=== PATIENT | male | born 1950 | race Caucasian/White ===

== ENCOUNTER 2016-05-15 18:02 | Inpatient (IN) | payer MEDICARE ==
[~2016-05-15 18:02] MED LIST: ASPIRIN CHEWABL81 MG PO; COREG 3.125M3.125 MG PO; GLUCOTROL5 MG PO; K-DUR20 MEQ PO; LASIX40 MG PO; LYRICA 50MG CAP50 MG PO; PROSCAR5 MG PO
[2016-05-15 18:41] LABS: BASOPHIL 1.1 % (0-2); EOSINOPHIL 2.1 % (0-7); HCT 48.5 % (42.0-52.0); HGB 17.5 g/dl (13.2-18.0); LYMPHOCYTE 27.3 % (15-48); MCH 27.5 pg (25.0-31.0); MCHC 36.1 g/dL (32.0-36.0); MCV 76.1 fL (78.0-100.0); MPV 12.4 fL (6.0-9.5); NEUTROPHIL 60.5 % (41-80); PLT 146 K/uL (150-400); RBC 6.37 M/uL (4.70-6.00); RDW 13.7 % (11.5-14.0); WBC 7.2 K/uL (4.0-10.5)
[2016-05-15 18:53] LABS: ALBUMIN 4.3 g/dL (3.4-4.8); BILIRUBIN - TOTAL 0.5 mg/dL (0.1-1.0); CREATININE 1.8 mg/dL (0.7-1.2); GLOBULIN (CALCULATION) 3.1 g/dL (2.2-4.2); POTASSIUM 2.8 mmol/L (3.5-5.1); TOTAL PROTEIN 7.4 g/dL (6.4-8.3)
[2016-05-15 19:54] LABS: BILIRUBIN NEGATIVE (NEGATIVE); BLOOD NEGATIVE Ery/uL (NEGATIVE); CLARITY CLEAR (CLEAR); COLOR YELLOW (YELLOW); GLUCOSE (U) 3+ mg/dL (NORMAL); KETONE (U) NEGATIVE (NEGATIVE); LEUKOCYTES NEGATIVE Leu/uL (NEGATIVE); NITRITE NEGATIVE (NEGATIVE); PROTEIN NEGATIVE (NEGATIVE); SPECIFIC GRAVITY <=1.005 (1.001-1.030); UROBILINOGEN 0.2 mg/dL (0.2-1.0); pH 6.5 (5.0-9.0)
[2016-05-16 03:40] LABS: BASOPHIL 1.5 % (0-2); EOSINOPHIL 3.1 % (0-7); HCT 44.8 % (42.0-52.0); HGB 15.9 g/dl (13.2-18.0); MCH 27.6 pg (25.0-31.0); MCHC 35.5 g/dL (32.0-36.0); MCV 77.6 fL (78.0-100.0); MONOCYTE 8.5 % (0-12); NEUTROPHIL 56.9 % (41-80); PLT 114 K/uL (150-400); RBC 5.77 M/uL (4.70-6.00); RDW 13.8 % (11.5-14.0); WBC 6.1 K/uL (4.0-10.5)
[2016-05-16 04:05] LABS: CREATININE 1.5 mg/dL (0.7-1.2); POTASSIUM 2.8 mmol/L (3.5-5.1)
[2016-05-16 17:35] LABS: CREATININE 1.4 mg/dL (0.7-1.2); POTASSIUM 3.9 mmol/L (3.5-5.1)
[2016-05-17 04:05] LABS: HCT 44.6 % (42.0-52.0); HGB 15.5 g/dl (13.2-18.0); MCH 27.6 pg (25.0-31.0); MCHC 34.8 g/dL (32.0-36.0); MCV 79.5 fL (78.0-100.0); MPV 12.2 fL (6.0-9.5); RBC 5.61 M/uL (4.70-6.00); RDW 14.1 % (11.5-14.0); WBC 5.9 K/uL (4.0-10.5)
[2016-05-17 04:24] LABS: CREATININE 1.2 mg/dL (0.7-1.2); POTASSIUM 3.1 mmol/L (3.5-5.1)
== END 2016-05-17 15:15 | disposition home or self-care (01) | DRG 638 ==
LOC: FER 18:02 → FTCU 23:59
PROVIDERS: Emergency Medicine; Internal Medicine; ADMIT Internal Medicine
DX: E11.65 Type 2 diabetes mellitus with hyperglycemia (principal); N17.9 Acute kidney failure, unspecified; I42.8 Other cardiomyopathies; I50.22 Chronic systolic (congestive) heart failure; E87.1 Hypo-osmolality and hyponatremia; E11.22 Type 2 diabetes mellitus with diabetic chronic kidney disease; I12.9 Hypertensive chronic kidney disease with stage 1 through stage 4 chronic kidney disease, or unspecified chronic kidney disease; N18.9 Chronic kidney disease, unspecified; E87.6 Hypokalemia; E86.0 Dehydration; G47.33 Obstructive sleep apnea (adult) (pediatric); J44.9 Chronic obstructive pulmonary disease, unspecified; Z88.2 Allergy status to sulfonamides; Z88.5 Allergy status to narcotic agent; N18.3 Chronic kidney disease, stage 3 (moderate); R09.02 Hypoxemia
CPT/HCPCS: 36415; 36600; 71020; 80048; 80053; 81003; 82009; 82550; 82803; 82962; 84484; 85025; 93005; 97116; 97162; 97530-GP; J1644; J1815; J3480

== ENCOUNTER 2020-03-28 14:51 | Emergency (ER) | payer MEDICARE, OTHER ==
[~2020-03-28 14:51] MED LIST changes: +BASAGLAR K100 UNIT/1 SC; +BENTYL10 MG PO; +BUMETANIDE1 MG PO; +BUMETANIDE2 MG PO; +BUMEX1 MG PO; +BUPROPION XL150 MG PO; +BUPROPION XL300 MG PO; +CETIRIZINE HCL10 MG PO; +COREG 6.25MG6.25 MG PO; +FLOMAX0.4 MG PO; +HUMULIN R100 UNIT/1 SC; +HUMULIN R100 UNIT/1 SQ; +HYDROCODON-ACE1 EAC4 PO; +LEVAQUIN750 MG PO; +MACROBID100 MG PO; +MAG-OXIDE 400M400 MG PO; +NORCO 5-325 TA1 EACH PO; +PERCOCET 5-3251 EACH PO; +POTASSIUM CHLO20 ME2 PO; +PRAVACHOL40 MG PO; +PRAVASTATIN SOD20 MG PO; +PREDNISOLO15 MG/5 ML PO; +TORSEMIDE20 MG PO; +ZAROXOLYN2.5 MG PO; +ZESTRIL2.5 MG PO; +ZOFRAN4 MG SL
[2020-03-28 15:00] LABS: BASOPHIL 1.1 % (0-2); EOSINOPHIL 2.1 % (0-7); HCT 44.8 % (42.0-52.0); HGB 14.2 g/dl (13.2-18.0); LYMPHOCYTE 10.8 % (15-48); MCH 26.2 pg (25.0-31.0); MCHC 31.7 g/dL (32.0-36.0); MCV 82.5 fL (78.0-100.0); MONOCYTE 9.4 % (0-12); MPV 12.2 fL (6.0-9.5); NEUTROPHIL 76.3 % (41-80); NRBC 0; PLT 158 K/uL (150-400); RBC 5.43 M/uL (4.70-6.00); RDW 16.5 % (11.5-14.0); WBC 7.3 K/uL (4.0-10.5)
[2020-03-28 15:04] LABS: INR 1.31 (0.9-1.2); PROTHROMBIN TIME 15.5 SECONDS (11.4-13.6); PTT 33.7 SECONDS (22.2-34.7)
[2020-03-28 15:17] LABS: ALBUMIN 3.8 g/dL (3.4-5.0); BILIRUBIN - TOTAL 0.7 mg/dL (0.2-1.0); BUN/CREAT RATIO (CALC) 30.1 RATIO; CREATININE 1.73 mg/dL (0.67-1.17); MAGNESIUM 2.2 mg/dL (1.8-2.4); POTASSIUM 2.6 mmol/L (3.5-5.1); TOTAL PROTEIN 7.8 g/dL (6.4-8.2)
[2020-03-28 15:22] LABS: LACTIC ACID 1.8 mmol/L (0.4-1.9)
[2020-03-28 15:37] LABS: BILIRUBIN NEGATIVE (NEGATIVE); BLOOD NEGATIVE Ery/uL (NEGATIVE); CLARITY CLEAR (CLEAR); COLOR YELLOW (YELLOW); GLUCOSE (U) NORMAL (NORMAL); LEUKOCYTES NEGATIVE Leu/uL (NEGATIVE); NITRITE NEGATIVE (NEGATIVE); PROTEIN NEGATIVE (NEGATIVE); UROBILINOGEN 0.2 mg/dL (0.2-1.0); pH 6.5 (5.0-9.0)
== END 2020-03-28 18:05 | disposition other institution (70) ==
LOC: FER 14:51
PROVIDERS: Emergency Medicine
DX: I21.4 Non-ST elevation (NSTEMI) myocardial infarction (principal); I50.9 Heart failure, unspecified; E11.22 Type 2 diabetes mellitus with diabetic chronic kidney disease; N18.9 Chronic kidney disease, unspecified; Z94.0 Kidney transplant status; Z20.822 Contact with and (suspected) exposure to COVID-19
CPT/HCPCS: 36415; 36600; 71045; 80053; 81003; 82803; 83605; 83615; 83735; 83880; 84145; 84484; 85025; 85610; 85730; 87040; 93005; J1650; U0002

== ENCOUNTER 2020-04-20 09:22 | Inpatient (IN) | payer MEDICARE, OTHER ==
[2020-04-20 09:52] LABS: BASOPHIL 1.2 % (0-2); EOSINOPHIL 2.8 % (0-7); HCT 49.5 % (42.0-52.0); HGB 15.5 g/dl (13.2-18.0); LYMPHOCYTE 12.1 % (15-48); MCH 26.2 pg (25.0-31.0); MCHC 31.3 g/dL (32.0-36.0); MCV 83.8 fL (78.0-100.0); MONOCYTE 9.1 % (0-12); MPV 11.7 fL (6.0-9.5); NEUTROPHIL 74.5 % (41-80); NRBC 0; PLT 154 K/uL (150-400); RBC 5.91 M/uL (4.70-6.00); RDW 17.9 % (11.5-14.0); WBC 6.7 K/uL (4.0-10.5)
[2020-04-20 10:02] LABS: INR 1.23 (0.9-1.2); PROTHROMBIN TIME 14.7 SECONDS (11.4-13.6)
[2020-04-20 10:05] LABS: D-DIMER 0.68 ug/mLFEU (0.00-0.41)
[2020-04-20 10:13] LABS: ALBUMIN 3.8 g/dL (3.4-5.0); BILIRUBIN - TOTAL 0.9 mg/dL (0.2-1.0); BUN/CREAT RATIO (CALC) 38.3 RATIO; CREATININE 1.49 mg/dL (0.67-1.17); GLOBULIN (CALCULATION) 3.7 g/dL; POTASSIUM 2.6 mmol/L (3.5-5.1); TOTAL PROTEIN 7.5 g/dL (6.4-8.2)
[2020-04-20 10:40] LABS: BILIRUBIN NEGATIVE (NEGATIVE); BLOOD 1+ Ery/uL (NEGATIVE); CLARITY CLEAR (CLEAR); COLOR YELLOW (YELLOW); GLUCOSE (U) NORMAL (NORMAL); LEUKOCYTES 1+ Leu/uL (NEGATIVE); NITRITE NEGATIVE (NEGATIVE); PROTEIN NEGATIVE (NEGATIVE); SPECIFIC GRAVITY 1.015 (1.001-1.030); UROBILINOGEN 0.2 mg/dL (0.2-1.0); pH 6.5 (5.0-9.0)
[2020-04-20 10:53] LABS: BACTERIA 1+
[2020-04-20] MEDS ORDERED: K-DUR20 MEQ PO (13:25)
[2020-04-20] MEDS ORDERED: HYDRALAZINE 10M10 MG PO (13:26)
[2020-04-20] MEDS ORDERED: CLOPIDOGREL75 MG PO (13:28)
[2020-04-21 06:40] LABS: BASOPHIL 1.2 % (0-2); EOSINOPHIL 3.8 % (0-7); HCT 46.6 % (42.0-52.0); HGB 14.6 g/dl (13.2-18.0); LYMPHOCYTE 14.5 % (15-48); MCH 26.5 pg (25.0-31.0); MCHC 31.3 g/dL (32.0-36.0); MCV 84.6 fL (78.0-100.0); MONOCYTE 11.9 % (0-12); MPV 11.5 fL (6.0-9.5); NEUTROPHIL 68.2 % (41-80); NRBC 0; PLT 151 K/uL (150-400); RBC 5.51 M/uL (4.70-6.00); RDW 17.5 % (11.5-14.0); WBC 5.1 K/uL (4.0-10.5)
[2020-04-21 07:09] LABS: ALBUMIN 3.6 g/dL (3.4-5.0); BILIRUBIN - TOTAL 0.9 mg/dL (0.2-1.0); BUN/CREAT RATIO (CALC) 37.5 RATIO; CREATININE 1.44 mg/dL (0.67-1.17); GLOBULIN (CALCULATION) 3.4 g/dL; POTASSIUM 2.9 mmol/L (3.5-5.1)
[2020-04-22 06:08] LABS: BASOPHIL 1.4 % (0-2); EOSINOPHIL 4.2 % (0-7); HCT 44.7 % (42.0-52.0); LYMPHOCYTE 12.8 % (15-48); MCH 26.3 pg (25.0-31.0); MCHC 31.3 g/dL (32.0-36.0); MONOCYTE 10.3 % (0-12); MPV 12.3 fL (6.0-9.5); NEUTROPHIL 70.9 % (41-80); NRBC 0; PLT 136 K/uL (150-400); RBC 5.32 M/uL (4.70-6.00); RDW 17.5 % (11.5-14.0); WBC 5.1 K/uL (4.0-10.5)
[2020-04-22 06:19] LABS: BUN/CREAT RATIO (CALC) 35.9 RATIO; CREATININE 1.45 mg/dL (0.67-1.17)
[2020-04-23 06:27] LABS: BASOPHIL 1.2 % (0-2); EOSINOPHIL 2.9 % (0-7); HGB 14.2 g/dl (13.2-18.0); LYMPHOCYTE 14.8 % (15-48); MCH 26.2 pg (25.0-31.0); MCHC 30.9 g/dL (32.0-36.0); MCV 84.9 fL (78.0-100.0); MPV 12.7 fL (6.0-9.5); NEUTROPHIL 69.9 % (41-80); NRBC 0; PLT 144 K/uL (150-400); RBC 5.42 M/uL (4.70-6.00); RDW 17.4 % (11.5-14.0); WBC 5.2 K/uL (4.0-10.5)
[2020-04-23 06:47] LABS: BUN/CREAT RATIO (CALC) 29.9 RATIO; CREATININE 1.77 mg/dL (0.67-1.17); POTASSIUM 3.3 mmol/L (3.5-5.1)
[2020-04-24 06:31] LABS: HCT 46.7 % (42.0-52.0); HGB 14.4 g/dl (13.2-18.0); LYMPHOCYTE 14.9 % (15-48); MCH 26.2 pg (25.0-31.0); MCHC 30.8 g/dL (32.0-36.0); MCV 85.1 fL (78.0-100.0); MONOCYTE 12.5 % (0-12); MPV 12.4 fL (6.0-9.5); NEUTROPHIL 69.4 % (41-80); NRBC 0; PLT 132 K/uL (150-400); RBC 5.49 M/uL (4.70-6.00); RDW 17.5 % (11.5-14.0); WBC 5.9 K/uL (4.0-10.5)
[2020-04-24 06:47] LABS: BUN/CREAT RATIO (CALC) 29.9 RATIO; CREATININE 1.77 mg/dL (0.67-1.17); POTASSIUM 4.3 mmol/L (3.5-5.1)
[2020-04-24] MEDS ORDERED: BUMETANIDE1 MG PO (11:05)
== END 2020-04-24 12:53 | disposition home or self-care (01) | DRG 281 ==
LOC: FER 09:22 → FTCU 11:48 → FMS 04-22 16:48
PROVIDERS: Emergency Medicine; Internal Medicine Cardiovascular Disease; Nurse Practitioner Family; ADMIT Internal Medicine
DX: I21.A1 Myocardial infarction type 2 (principal); N17.9 Acute kidney failure, unspecified; E87.5 Hyperkalemia; Z95.810 Presence of automatic (implantable) cardiac defibrillator; E11.9 Type 2 diabetes mellitus without complications; I25.5 Ischemic cardiomyopathy; E78.5 Hyperlipidemia, unspecified; F17.210 Nicotine dependence, cigarettes, uncomplicated; N18.9 Chronic kidney disease, unspecified; Z20.822 Contact with and (suspected) exposure to COVID-19; J44.9 Chronic obstructive pulmonary disease, unspecified; M19.90 Unspecified osteoarthritis, unspecified site; K21.9 Gastro-esophageal reflux disease without esophagitis; F41.9 Anxiety disorder, unspecified; F32.9 Major depressive disorder, single episode, unspecified; N40.0 Benign prostatic hyperplasia without lower urinary tract symptoms; I34.0 Nonrheumatic mitral (valve) insufficiency; I12.9 Hypertensive chronic kidney disease with stage 1 through stage 4 chronic kidney disease, or unspecified chronic kidney disease; I25.10 Atherosclerotic heart disease of native coronary artery without angina pectoris; Z79.4 Long term (current) use of insulin; Z79.899 Other long term (current) drug therapy; Z88.5 Allergy status to narcotic agent; Z88.2 Allergy status to sulfonamides
CPT/HCPCS: 36415; 36600; 71045; 73620; 80048; 80053; 80061; 81001; 82803; 82962; 83880; 84443; 84484; 85025; 85379; 85610; 85730; 87040; 93005; 93970; 94010; J2405; U0002

== ENCOUNTER 2020-04-26 14:31 | Emergency (ER) | payer MEDICARE, OTHER ==
[~2020-04-26 14:31] MED LIST changes: +CLOPIDOGREL75 MG PO; +HYDRALAZINE 10M10 MG PO
[2020-04-26 15:26] LABS: EOSINOPHIL 2.7 % (0-7); HCT 47.8 % (42.0-52.0); HGB 14.7 g/dl (13.2-18.0); LYMPHOCYTE 9.8 % (15-48); MCH 26.7 pg (25.0-31.0); MCHC 30.8 g/dL (32.0-36.0); MCV 86.8 fL (78.0-100.0); MONOCYTE 10.5 % (0-12); MPV 12.5 fL (6.0-9.5); NEUTROPHIL 75.6 % (41-80); NRBC 0; PLT 160 K/uL (150-400); RBC 5.51 M/uL (4.70-6.00); RDW 17.9 % (11.5-14.0); WBC 7.1 K/uL (4.0-10.5)
[2020-04-26 15:55] LABS: INR 1.46 (0.9-1.2); PROTHROMBIN TIME 16.8 SECONDS (11.4-13.6)
[2020-04-26 16:03] LABS: ALBUMIN 3.3 g/dL (3.4-5.0); BILIRUBIN - TOTAL 0.7 mg/dL (0.2-1.0); BUN/CREAT RATIO (CALC) 33.9 RATIO; CREATININE 1.86 mg/dL (0.67-1.17); GLOBULIN (CALCULATION) 3.3 g/dL; POTASSIUM 4.8 mmol/L (3.5-5.1); TOTAL PROTEIN 6.6 g/dL (6.4-8.2)
== END 2020-04-26 18:23 | disposition other institution (70) ==
LOC: FER 14:31
PROVIDERS: Emergency Medicine
DX: I50.9 Heart failure, unspecified (principal); N18.9 Chronic kidney disease, unspecified; I25.2 Old myocardial infarction; J44.9 Chronic obstructive pulmonary disease, unspecified; Z95.0 Presence of cardiac pacemaker; Z88.2 Allergy status to sulfonamides; Z88.5 Allergy status to narcotic agent
CPT/HCPCS: 36415; 71045; 80053; 83880; 84484; 85025; 85610; 93005

== ENCOUNTER 2020-05-30 17:58 | Day surgery (SDCO) | payer MEDICARE, OTHER ==
[2020-05-30 19:35] LABS: BASOPHIL 1.1 % (0-2); EOSINOPHIL 2.2 % (0-7); HCT 46.5 % (42.0-52.0); HGB 14.3 g/dl (13.2-18.0); LYMPHOCYTE 10.4 % (15-48); MCH 25.8 pg (25.0-31.0); MCHC 30.8 g/dL (32.0-36.0); MCV 83.9 fL (78.0-100.0); MONOCYTE 12.6 % (0-12); MPV 11.5 fL (6.0-9.5); NEUTROPHIL 73.4 % (41-80); NRBC 0; PLT 153 K/uL (150-400); RBC 5.54 M/uL (4.70-6.00); RDW 18.6 % (11.5-14.0); WBC 6.3 K/uL (4.0-10.5)
[2020-05-30 19:39] LABS: INR 1.46 (0.9-1.2); PROTHROMBIN TIME 16.8 SECONDS (11.4-13.6)
[2020-05-30 20:03] LABS: ALBUMIN 3.2 g/dL (3.4-5.0); BUN/CREAT RATIO (CALC) 25.4 RATIO; CREATININE 1.93 mg/dL (0.67-1.17); GLOBULIN (CALCULATION) 3.5 g/dL; TOTAL PROTEIN 6.7 g/dL (6.4-8.2)
[2020-05-31 01:43] LABS: CORONAVIRUS 2019 SARS-COV-2 NEGATIVE (NEGATIVE); INFLUENZA A NAA NEGATIVE (NEGATIVE)
[2020-05-31] MEDS ORDERED: ASPIRIN EC81 MG PO (02:32)
[2020-05-31] MEDS ORDERED: WELLBUTRIN XL150 MG PO (02:33)
[2020-05-31] MEDS ORDERED: PROSCAR5 MG PO (02:35)
[2020-05-31] MEDS ORDERED: VITAMIN D3 COM1 EACH PO (02:37)
[2020-05-31] MEDS ORDERED: TORSEMIDE100 MG PO (02:40)
[2020-05-31] MEDS ORDERED: ALDACTONE25 MG PO (02:42)
[2020-05-31] MEDS ORDERED: [UNRECOGNIZED DRUG - OTHER] PO (02:44)
[2020-05-31 04:22] LABS: BASOPHIL 1.8 % (0-2); EOSINOPHIL 2.8 % (0-7); HGB 14.2 g/dl (13.2-18.0); LYMPHOCYTE 15.7 % (15-48); MCH 25.1 pg (25.0-31.0); MCHC 30.2 g/dL (32.0-36.0); MCV 83.2 fL (78.0-100.0); MONOCYTE 12.7 % (0-12); MPV 10.9 fL (6.0-9.5); NRBC 0; PLT 153 K/uL (150-400); RBC 5.65 M/uL (4.70-6.00); RDW 18.4 % (11.5-14.0); WBC 5.7 K/uL (4.0-10.5)
[2020-05-31 04:42] LABS: BUN/CREAT RATIO (CALC) 26.1 RATIO; CREATININE 1.8 mg/dL (0.67-1.17); POTASSIUM 3.7 mmol/L (3.5-5.1)
--- NOTE | 2020-05-31 16:20 | NUR ---
05/31 Mr. Machado reports to have recently bought a home with his son and [id number]. He has had [facility] in the past and he is not interested in HH services at this time. Mr. Urbina has 02, cane, walking stick, rw, knee brace and hospital bed.
[2020-06-01 06:31] LABS: BASOPHIL 2.3 % (0-2); EOSINOPHIL 2.5 % (0-7); HCT 42.7 % (42.0-52.0); HGB 13.4 g/dl (13.2-18.0); LYMPHOCYTE 17.6 % (15-48); MCH 25.7 pg (25.0-31.0); MCHC 31.4 g/dL (32.0-36.0); MONOCYTE 15.3 % (0-12); MPV 10.8 fL (6.0-9.5); NEUTROPHIL 62.1 % (41-80); NRBC 0; RBC 5.21 M/uL (4.70-6.00); RDW 17.7 % (11.5-14.0); WBC 4.4 K/uL (4.0-10.5)
[2020-06-01 06:33] LABS: PLT 138 K/uL (150-400)
[2020-06-01 06:56] LABS: BUN/CREAT RATIO (CALC) 26.9 RATIO; CREATININE 1.71 mg/dL (0.67-1.17); POTASSIUM 3.8 mmol/L (3.5-5.1)
[2020-06-02 06:09] LABS: BASOPHIL 1.6 % (0-2); EOSINOPHIL 2.7 % (0-7); HCT 43.2 % (42.0-52.0); HGB 13.6 g/dl (13.2-18.0); LYMPHOCYTE 12.2 % (15-48); MCH 25.9 pg (25.0-31.0); MCHC 31.5 g/dL (32.0-36.0); MCV 82.1 fL (78.0-100.0); MONOCYTE 13.4 % (0-12); MPV 11.5 fL (6.0-9.5); NEUTROPHIL 69.7 % (41-80); NRBC 0; PLT 135 K/uL (150-400); RBC 5.26 M/uL (4.70-6.00); RDW 17.8 % (11.5-14.0); WBC 5.6 K/uL (4.0-10.5)
[2020-06-02 06:22] LABS: BUN/CREAT RATIO (CALC) 27.2 RATIO; CREATININE 1.91 mg/dL (0.67-1.17); POTASSIUM 4.2 mmol/L (3.5-5.1)
[2020-06-03 06:06] LABS: BUN/CREAT RATIO (CALC) 27.9 RATIO; CREATININE 1.83 mg/dL (0.67-1.17)
[2020-06-03] MEDS ORDERED: METOLAZONE 5MG T5 M1 PO (11:00)
== END 2020-06-03 11:50 | disposition home or self-care (01) ==
LOC: FER 17:58 → FMS 05-31 01:20 → FTCU 05-31 01:20 → FMS 06-02 12:55
PROVIDERS: Emergency Medicine; Internal Medicine; Nurse Practitioner; ADMIT Internal Medicine
DX: I13.0 Hypertensive heart and chronic kidney disease with heart failure and stage 1 through stage 4 chronic kidney disease, or unspecified chronic kidney disease (principal); E11.22 Type 2 diabetes mellitus with diabetic chronic kidney disease; N18.32 Chronic kidney disease, stage 3b; I50.23 Acute on chronic systolic (congestive) heart failure; I25.5 Ischemic cardiomyopathy; J44.9 Chronic obstructive pulmonary disease, unspecified; E78.5 Hyperlipidemia, unspecified; M19.90 Unspecified osteoarthritis, unspecified site; K21.9 Gastro-esophageal reflux disease without esophagitis; F17.210 Nicotine dependence, cigarettes, uncomplicated; K74.60 Unspecified cirrhosis of liver; E11.621 Type 2 diabetes mellitus with foot ulcer; L97.529 Non-pressure chronic ulcer of other part of left foot with unspecified severity; E66.9 Obesity, unspecified; Z68.36 Body mass index [BMI] 36.0-36.9, adult; Z79.02 Long term (current) use of antithrombotics/antiplatelets; Z79.4 Long term (current) use of insulin; Z79.82 Long term (current) use of aspirin; Z79.899 Other long term (current) drug therapy; Z88.2 Allergy status to sulfonamides; Z88.5 Allergy status to narcotic agent; Z95.810 Presence of automatic (implantable) cardiac defibrillator; Z20.822 Contact with and (suspected) exposure to COVID-19
CPT/HCPCS: 36415; 71045; 80048; 80053; 82962; 83880; 84484; 85025; 85610; 93005; G0378; J1650; U0002

== ENCOUNTER 2020-06-06 07:48 | Emergency (ER) | payer MEDICARE, OTHER ==
[~2020-06-06 07:48] MED LIST changes: +ALDACTONE25 MG PO; +ASPIRIN EC81 MG PO; +METOLAZONE 5MG T5 M1 PO; +TORSEMIDE100 MG PO; +VITAMIN D3 COM1 EACH PO; +WELLBUTRIN XL150 MG PO; +[UNRECOGNIZED DRUG - OTHER] PO
[2020-06-06 08:41] LABS: BASOPHIL 0.9 % (0-2); EOSINOPHIL 2.9 % (0-7); HCT 42.7 % (42.0-52.0); HGB 13.5 g/dl (13.2-18.0); LYMPHOCYTE 7.2 % (15-48); MCH 25.4 pg (25.0-31.0); MCHC 31.6 g/dL (32.0-36.0); MCV 80.3 fL (78.0-100.0); MONOCYTE 10.7 % (0-12); MPV 11.5 fL (6.0-9.5); NRBC 0; PLT 141 K/uL (150-400); RBC 5.32 M/uL (4.70-6.00); RDW 17.8 % (11.5-14.0); WBC 6.5 K/uL (4.0-10.5)
[2020-06-06 08:45] LABS: INR 1.51 (0.9-1.2); PROTHROMBIN TIME 17.3 SECONDS (11.4-13.6)
[2020-06-06 08:58] LABS: ALBUMIN 3.2 g/dL (3.4-5.0); BILIRUBIN - TOTAL 0.9 mg/dL (0.2-1.0); CREATININE 2.52 mg/dL (0.67-1.17); GLOBULIN (CALCULATION) 3.1 g/dL; POTASSIUM 3.8 mmol/L (3.5-5.1); TOTAL PROTEIN 6.3 g/dL (6.4-8.2)
[2020-06-06 11:05] LABS: CORONAVIRUS 2019 SARS-COV-2 NEGATIVE (NEGATIVE)
[2020-06-06 11:06] LABS: INFLUENZA A NAA NEGATIVE (NEGATIVE)
== END 2020-06-06 12:10 | disposition other institution (70) ==
LOC: FER 07:48
PROVIDERS: Emergency Medicine
DX: I13.0 Hypertensive heart and chronic kidney disease with heart failure and stage 1 through stage 4 chronic kidney disease, or unspecified chronic kidney disease (principal); E11.22 Type 2 diabetes mellitus with diabetic chronic kidney disease; N18.9 Chronic kidney disease, unspecified; I50.9 Heart failure, unspecified; J44.9 Chronic obstructive pulmonary disease, unspecified; R79.89 Other specified abnormal findings of blood chemistry; Z99.81 Dependence on supplemental oxygen; Z87.891 Personal history of nicotine dependence; Z20.822 Contact with and (suspected) exposure to COVID-19
CPT/HCPCS: 36415; 71045; 80053; 84484; 85025; 85610; 93005; U0002

== ENCOUNTER 2020-08-04 23:17 | Emergency (ER) | payer MEDICARE, OTHER ==
[2020-08-05 00:41] LABS: EOSINOPHIL 2.2 % (0-7); HCT 39.9 % (42.0-52.0); HGB 12.5 g/dl (13.2-18.0); MCH 25.1 pg (25.0-31.0); MCHC 31.3 g/dL (32.0-36.0); MCV 80.1 fL (78.0-100.0); MONOCYTE 13.9 % (0-12); NEUTROPHIL 71.5 % (41-80); NRBC 0; PLT 151 K/uL (150-400); RBC 4.98 M/uL (4.70-6.00); RDW 22.1 % (11.5-14.0)
[2020-08-05 01:04] LABS: ALBUMIN 3.2 g/dL (3.4-5.0); BILIRUBIN - TOTAL 1.1 mg/dL (0.2-1.0); BUN/CREAT RATIO (CALC) 19.9 RATIO; CREATININE 1.76 mg/dL (0.67-1.17); GLOBULIN (CALCULATION) 3.4 g/dL; POTASSIUM 4.1 mmol/L (3.5-5.1); TOTAL PROTEIN 6.6 g/dL (6.4-8.2)
[2020-08-05 01:36] LABS: BILIRUBIN NEGATIVE (NEGATIVE); BLOOD NEGATIVE Ery/uL (NEGATIVE); CLARITY SLIGHTLY HAZY (CLEAR); COLOR YELLOW (YELLOW); GLUCOSE (U) 2+ mg/dL (NORMAL); LEUKOCYTES 1+ Leu/uL (NEGATIVE); NITRITE NEGATIVE (NEGATIVE); PROTEIN NEGATIVE (NEGATIVE)
[2020-08-05 01:41] LABS: BACTERIA TRACE
[2020-08-05 02:01] LABS: LACTIC ACID 2.5 mmol/L (0.4-1.9)
== END 2020-08-05 13:35 | disposition other institution (70) ==
LOC: FER 23:17
PROVIDERS: Emergency Medicine Emergency Medical Services
DX: K80.00 Calculus of gallbladder with acute cholecystitis without obstruction (principal); I13.0 Hypertensive heart and chronic kidney disease with heart failure and stage 1 through stage 4 chronic kidney disease, or unspecified chronic kidney disease; E11.22 Type 2 diabetes mellitus with diabetic chronic kidney disease; N18.9 Chronic kidney disease, unspecified; I50.9 Heart failure, unspecified; Z79.4 Long term (current) use of insulin; Z95.0 Presence of cardiac pacemaker; Z98.890 Other specified postprocedural states; Z87.19 Personal history of other diseases of the digestive system; Z79.82 Long term (current) use of aspirin; Z79.02 Long term (current) use of antithrombotics/antiplatelets; Z79.899 Other long term (current) drug therapy; Z88.2 Allergy status to sulfonamides; Z88.5 Allergy status to narcotic agent; Z20.822 Contact with and (suspected) exposure to COVID-19
CPT/HCPCS: 36415; 71045; 80053; 81001; 82150; 83605; 83690; 83880; 84145; 84484; 85025; 87040; 87076; 87077; 87088; 87186; 93005; J1170; J2405; J2543; J2550; U0002